=== PATIENT | male | born 1990 | race Native Hawaiian/Other Pacific Islander ===

== ENCOUNTER 2017-12-30 11:29 | Emergency (ER) | payer OTHER ==
[2017-12-30 11:39] VITALS: TEMP 98.5
--- NOTE | 2017-12-30 11:48 | ED PDOC ---
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 PT states he was stepping out and twisted foot resulting in a scratch on the right elbow, right lateral foot pain and tailbone pain. Pt reports localized tailbone pain. Pt reports pain localized on the foot to the lateral area. Pt did not take anything for pain and does not want anything in ER. Past Medical History Reviewed: Historical Data, Nursing Documentation, Vital Signs Vital Signs: Last Vital Signs Temp 98.5 F 12/30/17 11:38 Pulse 77 12/30/17 11:38 Resp 18 12/30/17 11:38 BP 131/71 12/30/17 11:38 Pulse Ox 99 12/30/17 11:38 - Medical History PMH: No Chronic Diseases - Surgical History Surgical History: No Surg Hx - Family History Family History: States: No Known Family Hx - Living Arrangements Living Arrangements: With Family - Allergies Allergies/Adverse Reactions: Allergies Allergy/AdvReac Type Severity Reaction Status Date / Time No Known Allergies Allergy Verified 12/30/17 11:35 Review of Systems ROS Statement: Except As Marked, All Systems Reviewed And Found Negative Constitutional: Negative for: Fever, Chills Gastrointestinal: Negative for: Nausea, Vomiting Musculoskeletal: Positive for: Back Pain, Foot Pain Skin: Positive for: Other Physical Exam - Reviewed Nursing Documentation Reviewed: Yes Vital Signs Reviewed: Yes - Physical Exam Appears: Positive for: Well, Non-toxic, No Acute Distress Head Exam: Positive for: ATRAUMATIC, NORMAL INSPECTION, NORMOCEPHALIC Skin: Positive for: Normal Color, Warm, DRY Eye Exam: Positive for: Normal appearance ENT: Positive for: Normal ENT Inspection Neck: Positive for: Normal, Painless ROM Cardiovascular/Chest: Positive for: Regular Rate, Rhythm Respiratory: Positive for: Normal Breath Sounds. Negative for: Accessory Muscle Use, Respiratory Distress Gastrointestinal/Abdominal: Positive for: Normal Exam, Soft Back: Positive for: Normal Inspection, Other (Tailbone tenderness ) Extremity: Positive for: Normal ROM (In UE and LOW ), Tenderness (Cuboid, right ), Swelling Neurologic/Psych: Positive for: Alert, Oriented - ECG O2 Sat by Pulse Oximetry: 99 Pulse Ox Interpretation: Normal Medical Decision Making Medical Decision Making: (+) fracture seen in XR. Podiatry consult. Dr. Desai requests MRI. Splint placed by podiatry resident. Disposition - Clinical Impression Clinical Impression: Foot fracture - Patient ED Disposition Is Patient to be Admitted: No Counseled Patient/Family Regarding: Diagnosis, Need For Followup - Disposition Referrals: Clifford Desai III, MD [Staff Provider] - Disposition: Routine/Home Disposition Time: 18:57 Condition: STABLE Additional Instructions: Ice, elevation. Please follow-up with Dr. Edwards Instructions: Foot Fracture (DC) Forms: [employer] (Hebrew)
--- NOTE | 2017-12-30 14:38 | RAD ---
Date of service: 12/30/2017 PROCEDURE: Radiographs of the Sacrum and Coccyx HISTORY: tailbone pain COMPARISON: None available. TECHNIQUE: Frontal and lateral views of the sacrum and coccyx FINDINGS: BONES: Sacrum and coccyx unremarkable. No fracture or focal lesion. SACROILIAC JOINTS: Unremarkable. OTHER FINDINGS: None. IMPRESSION: Unremarkable radiographs of the sacrum and coccyx.
--- NOTE | 2017-12-30 14:54 | RAD ---
Date of service: 12/30/2017 PROCEDURE: Right Foot Radiographs. HISTORY: twisted ankle, pain ecchymosis COMPARISON: None. FINDINGS: BONES: Normal. No fracture. JOINTS: Normal. SOFT TISSUES: Normal. OTHER FINDINGS: None. IMPRESSION: Normal right foot radiographs.
--- NOTE | 2017-12-30 16:29 | CP.PCM.CON ---
History of Present Illness - History of Present Illness History of Present Illness: Podiatry consult note for attending, Dr. Desai 27 y/o male seen and evaluated in the ED for right foot and ankle pain. Patient states he works for [employer] and fell from the truck. Patient landed on his back and twisted his right ankle. Patient reports it occurred around 11 AM this morning. In the ED, patient has applied ICE to the right foot. Patient came directly to the ED. Patient was AAOX3, and resting comfortably. Patient denies left pedal complaints. Patient denies any PMHx, PSHx, allergies, and denies tobacco and alcohol use. Review of Systems - Review of Systems All systems: reviewed and no additional remarkable complaints except Review of Systems: As per HPI Past Patient History - Infectious Disease Hx of Infectious Diseases: None Meds Allergies/Adverse Reactions: Allergies Allergy/AdvReac Type Severity Reaction Status Date / Time No Known Allergies Allergy Verified 12/30/17 11:35 Physical Exam - Constitutional Appears: Well, Non-toxic, No Acute Distress - Head Exam Head Exam: ATRAUMATIC, NORMOCEPHALIC - Extremities Exam Additional comments: Bilateral Lower Extremity Exam VASC: DP and PT 2/4 bilaterally, CFT less than 3 seconds X 10; TG warm to warm on the right, warm to cool on the left, non-pitting edema noted to the right dorsolateral ankle NEURO: epicritic and protective sensation intact DERM: eccymosis noted to the right dorso-lateral ankle inferior and distal to lateral malleolus, no open lesions, no clinical signs of infection MSK: severe pain on palpation to the right dorso-lateral ankle at the level of the extensor digitorum brevis tendon, severe pain with inversion and plantarflexion of the ankle, pain on palpation to the navicular dorsally, negative anterior drawer test, no pain posterior at the insertion of the Achilles tendon, pain on palpation to plantar calcaneus - Neurological Exam Neurological exam: Alert, Oriented x3 - Psychiatric Exam Psychiatric exam: Normal Affect, Normal Mood Results - Vital Signs Recent Vital Signs: Last Vital Signs Temp 98.5 F 12/30/17 11:38 Pulse 77 12/30/17 11:38 Resp 18 12/30/17 11:38 BP 131/71 12/30/17 11:38 Pulse Ox 99 12/30/17 11:50 Assessment & Plan - Assessment and Plan (Free Text) Assessment: 27 y/o male patient seen and evaluated for right ankle pain and swelling Plan: Patient seen and evaluated in the ED for attending Dr. Desai Patient plan discussed with attending Dr. Desai Right Foot X-ray- normal right foot radiographs, no fracture, no dislocation as per radiology review MRI Results- 1. prominent fluid, reticulation ,and edema seen within the subq soft tissues at the dorsal aspect of the mid and hindfoot 2. within the musculature, high grade muscle strain and or partial tearing of the musculature at that level. There may be some adjacent increased signal noted within the distal inframalleolar portion of the extensor digitorum tendon 3. dorsal aspect of the navicular bone, possible small avulsion fracture of the bone 4. bone marrow edema noted within anteromedial talus, anterior lateral calcaneus , and posteromedial cuboid bone 5. mild splaying of the peroneus brevis tendon at the level of the ankle mortise , representing a partial split tear 6. small ankle joint effusion 7. increased signal density within the deltoid ligament 8. ATFL and PTFL are preserved Patient placed in a bi-valved short leg cast with SANDRA Wrap, CFT less than 3 seconds X 5 Patient strongly advised not to bear weight to the right foot Patient provided with crutches and taught how to use crutches Patient provided with MRI disc to take to Dr. Desai's office Patient instructed to return to ED if pain worsens with case or if systemic signs of F/V/N/posterior calf pain noted Patient demonstrated verbal understanding and all questions answered Patient will follow up with Dr. Desai in office Thank you for the podiatry consult - Date & Time Date: 12/30/17 Time: 19:19
--- NOTE | 2017-12-30 17:36 | MRI ---
MRI right ankle History: Foot and ankle pain. Injury. Comparison: X-ray dated 12/30/2017 Technique: Multi-echo multiplanar sequences were performed through the right hindfoot and ankle without the use of intravenous contrast. Findings: Prominent fluid, reticulation, and edema seen within the subcutaneous soft tissues at the dorsal aspect of the mid and hindfoot. Within the musculature, at the level of the dorsal lateral aspect of the midfoot, best demonstrated on series 6, images 10 through 15, there is prominent increased STIR signal suggestive for a high-grade muscle strain and or partial tearing of the musculature at that level. There may be some adjacent increased signal noted within the distal inframalleolar portion of the extensor digitorum tendon as demonstrated on series 6, images 9-11. Clinical correlation. In correlation with the plain x-ray, at the dorsal aspect of the navicular bone, there is some increased STIR signal with some decreased T1 signal with a suggestion of cortical irregularity suggestive for a possible small avulsion injury/avulsion fracture of the navicular bone. Correlation with bony CT would be helpful to better delineate the osseous anatomy at this level. Additional increased signal seen at the dorsal lateral aspect of the navicular bone and corresponding anterior lateral talus suggestive for bone bruising and or subchondral osseous injury. Additional patchy reactive bone marrow edema with decreased T1 signal and increased STIR signal noted within anteromedial talus, anterior lateral calcaneus, and posteromedial cuboid bone suggestive for bone bruising and or subchondral osseous injury. Anterior tibial and extensor hallucis longus tendon sheaths appear preserved. Medial flexor tendon sheaths appear preserved. Mild splaying of the peroneus brevis tendon at the level of the ankle mortise which may represent a partial split tear. Remainder of the peroneal tendons appear preserved. Anterior and posterior tibiofibular ligaments are preserved. Anterior and posterior talofibular ligaments appear preserved. Achilles tendon preserved. Plantar fascia preserved. 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 Small ankle joint effusion. Mild increased signal within the deep fibers of deltoid ligament suggestive for low grade sprain. Impression: 1. Prominent fluid, reticulation, and edema seen within the subcutaneous soft tissues at the dorsal aspect of the mid and hindfoot. 2. Within the musculature, at the level of the dorsal lateral aspect of the midfoot, best demonstrated on series 6, images 10 through 15, there is prominent increased STIR signal suggestive for a high-grade muscle strain and or partial tearing of the musculature at that level. There may be some adjacent increased signal noted within the distal inframalleolar portion of the extensor digitorum tendon as demonstrated on series 6, images 9-11. Clinical correlation. 3. In correlation with the plain x-ray, at the dorsal aspect of the navicular bone, there is some increased STIR signal with some decreased T1 signal with a suggestion of cortical irregularity suggestive for a possible small avulsion injury/avulsion fracture of the navicular bone. Correlation with bony CT would be helpful to better delineate the osseous anatomy at this level. Additional increased signal seen at the dorsal lateral aspect of the navicular bone and corresponding anterior lateral talus suggestive for bone bruising and or subchondral osseous injury. 4. Additional patchy reactive bone marrow edema with decreased T1 signal and increased STIR signal noted within anteromedial talus, anterior lateral calcaneus, and posteromedial cuboid bone suggestive for bone bruising and or subchondral osseous injury. 5. Mild splaying of the peroneus brevis tendon at the level of the ankle mortise which may represent a partial split tear. Remainder of the peroneal tendons appear preserved. 6. 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 7. Small ankle joint effusion. 8. Mild increased signal within the deep fibers of deltoid ligament suggestive for a low grade sprain.
[2017-12-30 19:16] VITALS: BP 120/70; PULSE 74; RESP 20; O2SAT 98
== END 2017-12-30 19:15 | disposition home or self-care (01) ==
LOC: H.ER 11:29
DX: S92.901A Unspecified fracture of right foot, initial encounter for closed fracture (principal); V87.8XXA Person injured in other specified noncollision transport accidents involving motor vehicle (traffic), initial encounter; Y99.0 Civilian activity done for income or pay